=== PATIENT | male | born 1995 | race Caucasian/White ===

== ENCOUNTER 2018-08-11 11:12 | Emergency (ER) | payer OTHER ==
[2018-08-11 11:18] VITALS: BP 146/95
--- NOTE | 2018-08-11 11:19 | EDPHY ---
H & P Time Seen by Provider: 08/11/18 11:14 Constitutional: Initial Vital Signs Temperature (C) 36.9 C 08/11/18 11:15 Heart Rate 72 08/11/18 11:15 Respiratory Rate 16 08/11/18 11:15 Blood Pressure 146/95 H 08/11/18 11:15 O2 Sat (%) 98 08/11/18 11:15 O2 Delivery Mode Room Air Allergies/Adverse Reactions: No Known Allergies Allergy (Unverified 08/11/18 11:18) Home Medications: Medication Instructions Recorded Ibuprofen [Motrin] 800 mg PO Q8 #20 tab 08/11/18 Medical Decision Making - Diagnostics Imaging: Discussed imaging studies w/ technical lead Radiologist, I viewed and interpreted images myself ED Course/Re-evaluation: CHIEF COMPLAINT: Left big toe pain and swelling HISTORY OF PRESENT ILLNESS: The patient is a 23 y/o male complaining of left big toe swelling and pain. For the past week he has been wearing flip flops. He denies any other injury or trauma. The pain is exacerbated with movement. No fever, headache, body aches, lightheadedness, chest pain, heart palpitations, shortness of breath, cough, abdominal pain, urinary or bowel complaints, numbness, paresthesias. REVIEW OF SYSTEMS: A 10 point review of systems was performed and is negative with the exception of the elements mentioned in the history of present illness. PHYSICAL EXAM: HR, BP, O2 Sat, RR. Temp noted General Appearance: Alert, well hydrated, appropriate, and non-toxic appearing. Head: Atraumatic without scalp tenderness or obvious injury Eyes: Pupils equal, round, reactive to light and accommodation, EOMI, no trauma , no injection. Ears: Clear bilaterally, no perforation, normal landmarks Nose: Atraumatic, no rhinorrhea, clear. Throat: There is no erythema or exudates, no lesions, normal tonsils, mucus membranes moist. Neck: Supple, 2+ carotid upstroke, nontender, no lymphadenopathy. Respiratory: No retractions, no distress, no wheezes, and no accessory muscle use. Cardiovascular: Regular rate and rhythm, no murmurs, rubs, or gallops. Bilateral carotid, radial, dorsalis pedis, and posterior tibial pulses intact. Good capillary refill all extremities. Musculoskeletal: Left MTP swelling and pain to palpation. Otherwise normal active ROM of all extremities, atraumatic. Neurological: Alert, appropriate, and interactive. The patient has normal DTRs and non-focal cranial nerves, motor, sensory, and cerebellar exam. Skin: No rashes, good turgor, no nodules on palpation. Past medical history: Denies Past surgical history: Denies Family history: Denies Social history: Single, student at , single DIAGNOSTICS/PROCEDURES/CRITICAL CARE TIME: Left toe x-ray: Left great sesamoid fracture. DIFFERENTIAL DIAGNOSIS: The differential diagnosis for the patient's toe injury included but was not limited to fracture, ligamentous injury, contusion, muscular strain. MEDICAL DECISION MAKING: The patient is a 23 y/o male presenting with left big toe swelling and pain after wearing flip flops for a week. On exam he has left great toe MTP swelling and tenderness. Left foot x-ray ordered to rule out a sesamoid fracture. 1139: I spoke with the radiologist who agrees with me that the patient has a left great sesamoid fracture. He will be placed in a post-op shoe. 1140: Reassessed patient and discussed imaging findings. He is comfortable with plan for post-op shoe, Motrin prescription, and orthopedic follow up. Return precautions provided; patient is comfortable with this plan. Departure - Departure Disposition: Home, Routine, Self-Care Clinical Impression: Fracture of sesamoid bone of foot, closed Qualifiers: Encounter type: initial encounter Laterality: left Qualified Code(s): S92.812A - Other fracture of left foot, initial encounter for closed fracture Condition: Good Instructions: Toe Fracture (ED) Additional Instructions: 1. Wear the post-op shoe until follow up. 2. Rest, ice, elevation. 3. Follow up with an orthopedic surgeon within one week. 4. Return to the emergency department for worsening pain, swelling, numbness, weakness or other concerns. 5. Take Motrin as prescribed for pain and swelling. Referrals: Damian Munoz MD [Medical Doctor] - As per Instructions José York DPM [Doctor of Podiatric Medicine] - As per Instructions Prescriptions: Ibuprofen [Motrin] 800 mg PO Q8 #20 tab Report Scribed for: Randal Irizarry Report Scribed by: Joy Sanchez Date of Report: 08/11/18 Time of Report: 11:41
== END 2018-08-11 11:45 | disposition home or self-care (01) ==
DX: S92.812A Other fracture of left foot, initial encounter for closed fracture (principal)
CPT/HCPCS: L4386